=== PATIENT | male | born 2000 | race Two or more races ===

== ENCOUNTER 2022-06-25 20:26 | Emergency (ER) | payer MEDICAID, SELFPAY ==
--- NOTE | ~2022-06-25 | US_ITS ---
EXAMINATION: US SCROTUM CLINICAL INFORMATION: Right testicular pain and swelling. COMPARISON: None TECHNIQUE: A sonogram of the scrotum was performed assessing browne-scale appearance and color Doppler flow. Spectral Doppler analysis of the arterial and venous flow were performed in the testes bilaterally. FINDINGS: RIGHT: Right testicle measures 4.2 x 1.9 x 3.0 cm, volume 13 mL. No focal testicular parenchymal lesions are visualized. Spectral Doppler analysis of the arterial and venous flow is normal in the right testis. Right epididymal head is normal in size. A right appendix epididymis is noted No right hydrocele or varicocele is seen. Right epididymal Doppler flow is normal. LEFT: Left testicle measures 3.7 x 2.0 x 3.0 cm, volume 12 mL. No focal testicular parenchymal lesions are visualized. Spectral Doppler analysis of the arterial and venous flow is normal in the left testis. Left epididymal head is normal in size. No left hydrocele or varicocele is seen. Left epididymal Doppler flow is normal. US/US scrotum doppler IMPRESSION: Negative exam.
--- NOTE | ~2022-06-25 | US_ITS ---
EXAMINATION: US SCROTUM CLINICAL INFORMATION: Right testicular pain and swelling. COMPARISON: None TECHNIQUE: A sonogram of the scrotum was performed assessing browne-scale appearance and color Doppler flow. Spectral Doppler analysis of the arterial and venous flow were performed in the testes bilaterally. FINDINGS: RIGHT: Right testicle measures 4.2 x 1.9 x 3.0 cm, volume 13 mL. No focal testicular parenchymal lesions are visualized. Spectral Doppler analysis of the arterial and venous flow is normal in the right testis. Right epididymal head is normal in size. A right appendix epididymis is noted No right hydrocele or varicocele is seen. Right epididymal Doppler flow is normal. LEFT: Left testicle measures 3.7 x 2.0 x 3.0 cm, volume 12 mL. No focal testicular parenchymal lesions are visualized. Spectral Doppler analysis of the arterial and venous flow is normal in the left testis. Left epididymal head is normal in size. No left hydrocele or varicocele is seen. Left epididymal Doppler flow is normal. US/US scrotum IMPRESSION: Negative exam.
--- NOTE | 2022-06-25 20:41 | ED.MALEGU ---
HPI - Male Genitourinary General Chief complaint: General Medical <MARLENY Daniels - Last Filed: 06/25/22 20:49> Stated complaint: Genital Pain <MARLEYN Daniels - Last Filed: 06/25/22 20:49> Time Seen by Provider: 06/25/22 22:49 <MARLENY Daniels - Last Filed: 06/25/22 20:49> Source: patient <Janeth Phillip NP - Last Filed: 06/25/22 23:37> Mode of arrival: ambulatory <Janeth Phillip NP - Last Filed: 06/25/22 23:37> Limitations: no limitations <Janeth Phillip NP - Last Filed: 06/25/22 23:37> History of Present Illness HPI Narrative: 22-year-old male presents 1 day of testicular pain that has been constant, however this testicular pain has been intermittent over the past week. He does not report any trauma, hematuria, or penile discharge. <Janeth Phillip NP - Last Filed: 06/25/22 23:37> MD Complaint: testicle pain <Janeth Phillip NP - Last Filed: 06/25/22 23:37> Onset (ago): day(s) <Janeth Phillip NP - Last Filed: 06/25/22 23:37> Duration: constant <Janeth Phillip NP - Last Filed: 06/25/22 23:37> Location: right testicle <Janeth Phillip NP - Last Filed: 06/25/22 23:37> Severity: moderate <Janeth Phillip NP - Last Filed: 06/25/22 23:37> Severity scale (1-10): 6 <Janeth Phillip NP - Last Filed: 06/25/22 23:37> Quality: aching <Janeth Phillip NP - Last Filed: 06/25/22 23:37> Relieving factors: none <Janeth Phillip NP - Last Filed: 06/25/22 23:37> Exacerbating factors: palpation and movement <Janeth Phillip NP - Last Filed: 06/25/22 23:37> Associated symptoms: Reports denies other symptoms <Janeth Phillip NP - Last Filed: 06/25/22 23:37> Related Data Sexually active: No <Janeth Phillip NP - Last Filed: 06/25/22 23:37> Home medications: Previous Rx's Medication Instructions Recorded doxycycline monohydrate 100 mg 100 mg PO BID 14 days #28 caps 06/25/22 capsule <MARLENY Daniels - Last Filed: 06/25/22 20:49> Allergies/Adverse reactions: Allergies Allergy/AdvReac Type Severity Reaction Status Date / Time No Known Allergies Allergy Verified 06/25/22 20:47 <MARLENY Daniels - Last Filed: 06/25/22 20:49> Review of Systems Review of Systems: Constitutional: No Fever, No Chills Cardiovascular: No Chest Pain, No SOB Respiratory: No Cough, No Dyspnea Gastrointestinal: No Nausea, No Vomiting, No Diarrhea, No abdominal Pain Genitourinary: Positive testicular pain, No Dysuria, No Hematuria Musculoskeletal: No joint pain, No Myalgias, No Joint Swelling Skin: No Skin lacerations, No rash Neuro: No Weakness, No Numbness, No Paresthesias, No Dizziness, No Headache <Janeth Phillip NP - Last Filed: 06/25/22 23:37> Yes all other systems are reviewed and are negative <Janeth Phillip NP - Last Filed: 06/25/22 23:37> [facility] [place] Past Medical History Attestation statement: The following information was validated with the patient. <Janeth Phillip NP - Last Filed: 06/25/22 23:37> Source: old records reviewed <Janeth Phillip NP - Last Filed: 06/25/22 23:37> Social History Social History: Social History Advance Directives: No Advance Directives Information Provided: Yes <MARLENY Daniels - Last Filed: 06/25/22 20:49> Physical Exam Vital Signs: Vital Signs: Last Vital Signs Temp 97.6 F 06/25/22 20:46 Pulse 82 06/25/22 20:46 Resp 18 06/25/22 20:46 BP 141/88 H 06/25/22 20:46 Pulse Ox 97 06/25/22 20:46 O2 Del Method 06/25/22 20:46 BMI result Body Mass Index 38.5 <MARLENY Daniels - Last Filed: 06/25/22 20:49> Vital Signs: Last Vital Signs Temp 97.6 F 06/25/22 20:46 Pulse 82 06/25/22 20:46 Resp 18 06/25/22 20:46 BP 141/88 H 06/25/22 20:46 Pulse Ox 97 06/25/22 20:46 O2 Del Method 06/25/22 20:46 BMI result Body Mass Index 38.5 <Janeth Phillip NP - Last Filed: 06/25/22 23:37> Appearance: Alert. Oriented X3. No acute distress. Eyes: Pupils equal, round and reactive to light. ENT: Pharynx normal. Neck: Normal inspection. Neck supple. CVS: Normal heart rate and rhythm. Pulses normal. Respiratory: No respiratory distress. Breath sounds normal. Abdomen: Soft and nontender. Genitourinary: Testicular exam within normal limits. Tenderness noted to the right testicle. Cremasteric reflex intact. No indication of fourniers gangrene. No lesions wounds or abrasions. No penile discharge. Skin: Skin warm and dry. Normal skin color. Normal skin turgor. Extremities: Gait well balanced well coordinated. Neuro: No motor deficit. No sensory deficit. Cranial nerves 2-12 intact. <Janeth Phillip NP - Last Filed: 06/25/22 23:37> Course Course Course Narrative: RME-- 22-year-old male with no significant past medical history presenting to the ED complaining of Right testicular pain & swelling since yesterday. Pain is intermittent with mild dysuria. Denies injury/trauma Scrotal US, UA and CTNG ordered in triage <MARLENY Daniels - Last Filed: 06/25/22 20:49> RME-- 22-year-old male with no significant past medical history presenting to the ED complaining of Right testicular pain & swelling since yesterday. Pain is intermittent with mild dysuria. Denies injury/trauma Scrotal US, UA and CTNG ordered in triage 22-year-old male presents for testicular pain and swelling has been constant since yesterday however he has had intermittent testicular pain over the past week. He does not report any recent sexual contact, denies lesions, wounds, trauma, erectile dysfunction, or penile discharge. Scrotal ultrasound was completed while patient was in the emergency department waiting room, with negative results. At this time I feel it would be more beneficial to treat with ceftriaxone and doxycycline for epididymitis verses STI and have patient follow-up with Urology. Patient agrees with this plan. Patient verbalized understanding of signs and symptoms indicating need for emergent intervention. Verbalized understanding of discharge instructions. <Janeth Phillip NP - Last Filed: 06/25/22 23:37> Medical Decision Making Differential Diagnosis Differential Diagnoses: The differential diagnosis associated with the presentation includes <Janeth Phillip NP - Last Filed: 06/25/22 23:37> Hydrocele, varicocele, testicular cancer, STI, epididymal <Janeth Phillip NP - Last Filed: 06/25/22 23:37> Lab Data MDM Lab Attestation statement: I reviewed the patient's lab results. <Janeth Phillip NP - Last Filed: 06/25/22 23:37> Labs: Lab Results 06/25/22 Range/Units 20:57 Urine Color Yellow Urine Appearance Clear Urine pH 6.0 (5.0-9.0) Ur Specific [place] >= 1.030 H (1.005-1.025) Urine Protein Negative (Neg-Trace) mg/dL Urine Glucose (UA) Negative (Negative) mg/dL Urine Ketones Negative (Negative) mg/dL Urine Blood Negative (Negative) Urine Nitrite Negative (Negative) Ur Leukocyte Esterase Negative (Negative) <MARLENY Daniels - Last Filed: 06/25/22 20:49> Lab Results 06/25/22 Range/Units 20:57 Urine Color Yellow Urine Appearance Clear Urine pH 6.0 (5.0-9.0) Ur Specific [place] >= 1.030 H (1.005-1.025) Urine Protein Negative (Neg-Trace) mg/dL Urine Glucose (UA) Negative (Negative) mg/dL Urine Ketones Negative (Negative) mg/dL Urine Blood Negative (Negative) Urine Nitrite Negative (Negative) Ur Leukocyte Esterase Negative (Negative) <Janeth Phillip NP - Last Filed: 06/25/22 23:37> External Record Review External record reviewed: Outpatient record <Janeth Phillip NP - Last Filed: 06/25/22 23:37> Prescription Management I considered prescription management with: Antibiotic <Janeth Phillip NP - Last Filed: 06/25/22 23:37> Discharge Plan Discharge Clinical Impression: Pain in testicle <MARLENY Daniels Last Filed: 06/25/22 20:49> Patient Disposition: Home, Self-Care <MARLENY Daniels Last Filed: 06/25/22 20:49> Instructions: Testicle Pain (ED) <MARLENY Daniels Last Filed: 06/25/22 20:49> Additional Instructions: You were evaluated for testicular pain. Although there is a low likelihood of sexually transmitted infection, we are treating you for epididymitis. Please take doxycycline 100 mg twice a day for the next 14 days. Please follow-up with Dr. Davis, he is a urologist. Please call and request an appointment. Your testicular ultrasound was normal. Thank you for choosing this emergency department for evaluation. Please follow-up with primary care physician as needed. Return to the emergency department for any new, concerning, or worsening symptoms. <MARLENY Daniels - Last Filed: 06/25/22 20:49> Prescriptions: New doxycycline monohydrate 100 mg capsule 100 mg PO BID 14 Days Qty: 28 0RF <MARLENY Daniels - Last Filed: 06/25/22 20:49> Referrals: Tc Davis MD [Physician] - 3 days (Testicular pain) <MARLENY Daniels Last Filed: 06/25/22 20:49> Stand Alone Forms: Work/School Release <MARLENY Daniels - Last Filed: 06/25/22 20:49>
[2022-06-25 20:46] VITALS: BP 141/88; PULSE 82; RESP 18; TEMP 36.4; O2SAT 97; BMI 38.5
[2022-06-25 21:14] LABS: Appearance Urine Clear; Color Urine Yellow; Glucose Urine UA Negative (Negative); Leukocyte Esterase Urine Negative (Negative); Nitrite Urine Negative (Negative); Specific Gravity - Urine >= 1.030 (1.005-1.025); Urine Blood Negative (Negative); Urine Ketones Negative (Negative); Urine Protein Negative (Neg-Trace)
--- OUTSIDE RECORDS SUMMARY | 2022-06-25 23:15 | XMS_ITS | Continuity of Care Document ---
:2000 Author Organization [facility] Address [address] [place] [address]- Care Team Providers Name Role Phone Ari MUJICA, Jerri Ford Primary Care Physician Encounter [facility] Date(s): 09/22/20 - 10/22/[address] [address] Allergies, Adverse Reactions, Alerts Substance Reaction Severity Status NKA Active Immunizations Given and Recorded Vaccine Date Status Refusal Reason influenza virus vaccine, inactivated 03/21/17 Given influenza virus vaccine, inactivated 03/16/16 Given influenza virus vaccine, inactivated 05/12/14 Given influenza virus vaccine, inactivated1 04/17/12 Given influenza virus vaccine, inactivated2 06/23/09 Given influenza virus vaccine, inactivated3 03/31/08 Given influenza virus vaccine, inactivated 05/22/06 Given influenza virus vaccine, inactivated 06/14/04 Given influenza virus vaccine, inactivated 04/29/03 Given influenza virus vaccine, inactivated 03/27/02 Given influenza virus vaccine, inactivated 05/22/01 Given Hepatitis A Pediatric Vaccine 03/16/16 Given Hepatitis A Pediatric Vaccine 08/31/15 Given Human Papillomavirus Vaccine 08/31/15 Given Human Papillomavirus Vaccine 12/22/14 Given Human Papillomavirus Vaccine 07/08/14 Given Meningococcal Conjugate Vaccine 08/31/15 Given Meningococcal Conjugate Vaccine4 04/17/12 Given tetanus/diphtheria/pertussis, acel(Tdap)5 02/17/09 Given Varicella Virus Vaccine6 09/03/07 Given Varicella Virus Vaccine 05/25/99 Given Poliovirus Vaccine, Inactivated 05/27/03 Given Poliovirus Vaccine, Inactivated 08/29/99 Given Poliovirus Vaccine, Inactivated 98 Given Poliovirus Vaccine, Inactivated 98 Given Measles/Mumps/Rubella Virus Vaccine 05/28/02 Given Measles/Mumps/Rubella Virus Vaccine 05/25/99 Given diphtheria/tetanus/pertussis, acel(DTaP) 05/28/02 Given diphtheria/tetanus/pertussis, acel(DTaP) 08/29/99 Given diphtheria/tetanus/pertussis, acel(DTaP) 98 Given diphtheria/tetanus/pertussis, acel(DTaP) 98 Given diphtheria/tetanus/pertussis, acel(DTaP) 98 Given pneumococcal 13-valent vaccine 10/31/00 Given Haemophilus B conjugate (HbOC) vaccine 08/31/99 Given Haemophilus B conjugate (HbOC) vaccine 98 Given Haemophilus B conjugate (HbOC) vaccine 98 Given Haemophilus B conjugate (HbOC) vaccine 98 Given hepatitis B pediatric vaccine 98 Given hepatitis B pediatric vaccine 98 Given hepatitis B pediatric vaccine 98 Given 1Admin Note: VIS 01/09/11 [id number] Note: --VIS 03/18/09 [id number] Note: VIS 01/08/2008 [id number] Note: MENECTRA VIS 07/14/07 [id number] Note: VIS 12/26/05 [id number] Note: ADM BY RN Medications albuterol CFC free 90 mcg/inh inhalation aerosol 2, puffs, Inhalation, Every 4 hours, PRN, use with spacer, # 1 each, Refills 1, Tot. Refills 1, Maintenance, 07/22/19 15:40:00 EST, Route to Pharmacy Electronically, [id number], [facility] #[id number], 170, cm, 07/22/19... Start Date: 07/22/19 Status: OrderedFlonase 50 mcg/inh nasal spray 2 sprays, Nares, Both, Daily in AM, # 16 Gm, 0 Refills, Maintenance, 08/11/20 16:12:00 EST, [place], [facility] #[id number], Partial fill upon patient request if the prescription is for a schedule II opioid drug., 2 sprays Nares, Both Daily in AM,... Start Date: 08/11/20 Status: OrderedMiraLax oral powder for reconstitution = 17 Gm, By Mouth, Daily, dissolve in water before taking dissolve in water or juice, can use otc, #527 Gm, 5 Refills, Maintenance, 08/10/20 15:27:00 EST, [place], [facility] #[id number], Partial fill upon patient request if the prescription... Start Date: 08/10/20 Stop Date: 08/20/20 Status: OrderedVitamin D 07106 iu oral capsule 50,000 International_Units, 1, capsule, By Mouth, Every week, # 8 capsule, Refills 0, Tot. Refills 0, Maintenance, 08/04/19 11:32:00 EST, Route to Pharmacy Electronically, [facility] #[id number], 170, cm, 08/03/19 11:35:00 EST, Height Start Date: 08/04/19 Status: Ordered Problem List Condition Effective Dates Status Health Status Informant AST/SGOT level raised(Confirmed) Active Asthma(Confirmed) Active Obesity(Confirmed) Active Vitamin D deficiency(Confirmed) Active Social History Social History Type Response Smoking Status Never smoker; Tobacco user i n household: No entered on: 03/16/16 Sex
--- OUTSIDE RECORDS SUMMARY | 2022-06-25 23:15 | XMS_ITS | Continuity of Care Document ---
:2000 Author Organization [facility] Address [address] [place] [address]- Care Team Providers Name Role Phone Ari MUJICA, Jerri Ford Primary Care Physician [phone] En[place] [facility] [place] 06/06/20 - 07/06/20 [facility] [address] [place], [place] [address] Attending Physician: Larry Ruiz Admitting Physician: AdmLarry morales Referring Physician: AdmtrLarry Allergies, Adverse Reactions, Alerts Substance Reaction Severity [...] vaccine 98 Given 1Admin Note: VIS 01/09/11 [id number] Note: --VIS 03/18/09 [id number] Note: VIS 01/08/2008 [id number] Note: MENECTRA VIS 07/14/07 [id number] Note: VIS 12/26/05 [id number] Note: ADM BY RN Medications albuterol CFC free 90 mcg/inh inhalation aerosol 2, puffs, Inhalation, Every 4 hours, PRN, use with spacer, # 1 each, Refills 1, Tot. Refills 1, Maintenance, 07/22/19 15:40:00 EST, Route to Pharmacy Electronically, [id number], [facility] #[id number], 170, cm, 07/22/19... Start Date: 07/22/19 Status: OrderedFlonase 0.05 mg/inh nasal spray 1 sprays, Nares, Both, 2 times a day, # 1 each, 1 Refills, Maintenance, 09/08/15 14:11:46, 1 sprays Nares, Both 2 times a day,x30 days Start Date: 09/08/15 Stop Date: 11/07/15 Status: OrderedFlonase 50 mcg/inh nasal spray 1 sprays, Nares, Both, 2 times a day, # 16 Gm, 0 Refills, Maintenance, 06/06/20 16:33:00 EST, [place],[facility] #[id number], Partial fill upon patient request if the prescription is for a scheduleII opioid drug., 1 sprays Nares, Both 2 times a d... Start Date: 06/06/20 Status: OrderedVitamin D 73241 iu oral capsule 50,000 International_Units, 1, capsule, By Mouth, Every week, # 8 capsule, Refills 0, Tot. Refills 0, Maintenance, 08/04/19 11:32:00 EST, Route to Pharmacy Electronically, [facility] #[id number], 170, cm, 08/03/19 11:35:00 EST, Height Start Date: 08/04/19 Status: Ordered Problem List Condition Effective Dates Status Health Status Informant AST/SGOT level raised(Confirmed) Active Asthma(Confirmed) Active Obesity(Confirmed) Active Vitamin D deficiency(Confirmed) Active Social History Social History Type Response Smoking Status Never smoker; Tobacco user i n household: No entered on: 03/16/16 Sex
--- OUTSIDE RECORDS SUMMARY | 2022-06-25 23:15 | XMS_ITS | Continuity of Care Document ---
:2000 Author Organization [facility] Address [address] [place] [address]- Care Team Providers Name Role Phone Ari MUJICA, Jerri Ford Primary Care Physician [phone] Encounter [facility] [id number] Date(s): 09/23/20 - 10/23/[address] [address] Attending Physician: Larry Ruiz Admitting Physician: Admtr, Larry Referring Physician: Admtr, Ar8 Allergies, Adverse Reactions, Alerts Substance Reaction Severity [...] vaccine 98 Given 1Admin Note: VIS 01/09/11 [id number] Note: --VIS 03/18/09 [id number] Note: VIS 01/08/2008 [id number] Note: MENECTRA VIS 07/14/07 [id number] Note: VIS 12/26/05 [id number] Note: ADM BY RN Medications albuterol CFC free 90 mcg/inh inhalation aerosol 2, puffs, Inhalation, Every 4 hours, PRN, use with spacer, # 1 each, Refills 1, Tot. Refills 1, Maintenance, 07/22/19 15:40:00 EST, Route to Pharmacy Electronically, [id number], [facility] #[id number], 170, cm, 07/22/19... Start Date: 07/22/19 Status: OrderedFlonase 50 mcg/inh nasal spray 2 sprays, Nares, Both, Daily in AM, # 16 Gm, 0 Refills, Maintenance, 08/11/20 16:12:00 EST, [place], [facility] #[id number], Partial fill upon patient request if the prescription is for a schedule II opioid drug., 2 sprays Nares, Both Daily in AM,... Start Date: 08/11/20 Status: OrderedMiraLax oral powder for reconstitution = 17 Gm, By Mouth, Daily, dissolve in water before taking dissolve in water or juice, can use otc, #527 Gm, 5 Refills, Maintenance, 08/10/20 15:27:00 EST, [place], [facility] #[id number], Partial fill upon patient request if the prescription... Start Date: 08/10/20 Stop Date: 08/20/20 Status: OrderedVitamin D 06919 iu oral capsule 50,000 International_Units, 1, capsule, By Mouth, Every week, # 8 capsule, Refills 0, Tot. Refills 0, Maintenance, 08/04/19 11:32:00 EST, Route to Pharmacy Electronically, [facility] #[id number], 170, cm, 08/03/19 11:35:00 EST, Height Start Date: 08/04/19 Status: Ordered Problem List Condition Effective Dates Status Health Status Informant AST/SGOT level raised(Confirmed) Active Asthma(Confirmed) Active Obesity(Confirmed) Active Vitamin D deficiency(Confirmed) Active Social History Social History Type Response Smoking Status Never smoker; Tobacco user i n household: No entered on: 03/16/16 Sex
--- OUTSIDE RECORDS SUMMARY | 2022-06-25 23:16 | XMS_ITS | Continuity of Care Document ---
:2000 Author Organization [facility] Address [address] [place] [address]- Care Team Providers Name Role Phone Ari MUJICA, Jerri Ford Primary Care Physician Encounter [facility] [id number] Date(s): 08/11/20 - 08/18/20 [facility] [address], [place] [address] Encounter Diagnosis Eustachian tube dysfunction (Discharge Diagnosis) - 08/11/20 Attending Physician: Kevin Rainey MD Referring Physician: Jerri Chapman MD Allergies, Adverse Reactions, Alerts Substance Reaction Severity [...] vaccine 98 Given 1Admin Note: VIS 01/09/11 [id number] Note: --VIS 03/18/09 [id number] Note: VIS 01/08/2008 [id number] Note: MENECTRA VIS 07/14/07 [id number] Note: VIS 12/26/05 [id number] Note: ADM BY RN Medications albuterol CFC free 90 mcg/inh inhalation aerosol 2, puffs, Inhalation, Every 4 hours, PRN, use with spacer, # 1 each, Refills 1, Tot. Refills 1, Maintenance, 07/22/19 15:40:00 EST, Route to Pharmacy Electronically, [id number], [facility] #[id number], 170, cm, 07/22/19... Start Date: 07/22/19 Status: OrderedFlonase 50 mcg/inh nasal spray 2 sprays, Nares, Both, Daily in AM, # 16 Gm, 0 Refills, Maintenance, 08/11/20 16:12:00 EST, [place], [facility] #[id number], Partial fill upon patient request if the prescription is for a schedule II opioid drug., 2 sprays Nares, Both Daily in AM,... Start Date: 08/11/20 Status: OrderedMetamucil 3.4 gm/5.2 gm oral powder for reconstitution = 3.4 Gm, By Mouth, 3 times a day, PRN as needed for constipation, for 30 days, dissolve in 8 oz of fluid, patient can take [id number] Metamucil powder or any fiber for constipation, # 1,042 Gm, 1 Refills, Acute 10/09/20 15:27:00 EDT, 08/10/20 1... Start Date: 08/10/20 Stop Date: 10/09/20 Status: OrderedMiraLax oral powder for reconstitution = 17 Gm, By Mouth, Daily, dissolve in water before taking dissolve in water or juice, can use otc, #527 Gm, 5 Refills, Maintenance, 08/10/20 15:27:00 EST, [place], [facility] #[id number], Partial fill upon patient request if the prescription... Start Date: 08/10/20 Stop Date: 08/20/20 Status: OrderedVitamin D 50596 iu oral capsule 50,000 International_Units, 1, capsule, By Mouth, Every week, # 8 capsule, Refills 0, Tot. Refills 0, Maintenance, 08/04/19 11:32:00 EST, Route to Pharmacy Electronically, [facility] #[id number], 170, cm, 08/03/19 11:35:00 EST, Height Start Date: 08/04/19 Status: Ordered Problem List Condition Effective Dates Status Health Status Informant AST/SGOT level raised(Confirmed) Active Asthma(Confirmed) Active Obesity(Confirmed) Active Vitamin D deficiency(Confirmed) Active Diagnosis Diagnosis Type Effective Dates Health Clinical Infor mant Status Service Eustachian tube Discharge 08/11/20 dysfunction Diagnosis Vital Signs Most recent to oldest [Reference Range]: 1 Height 170.00 cm (08/11/20 3:56 PM) Weight 102.6 kg (08/11/20 3:56 PM) Oxygen Saturation [94-100 %] 100 % (08/11/20 3:56 PM) Pulse Rate [55-90 bpm] 86 bpm (08/11/20 3:56 PM) Body Mass Index [18.5-24.99] 35.5 *>HHI* (08/11/20 3:56 PM) Blood Pressure [90-138/55-84 mm Hg] 137/82 mm Hg (08/11/20 3:56 PM) Respiratory Rate [16-30 br/min] 17 br/min (08/11/20 3:56 PM) Temperature [96.8-100.4 DegF] 98.2 DegF (08/11/20 3:56 PM) Mode of Delivery (Oxygen) Room air (08/11/20 3:56 PM) Blood pressure sites Arm, right (08/11/20 3:56 PM) Temperature Route Temporal (08/11/20 3:56 PM) Dry Weight 102.6 kg (08/11/20 3:56 PM) Weight Obtained Via Standing scale (08/11/20 3:56 PM) Dry Weight Obtained Via Standing scale (08/11/20 3:56 PM) Social History Social History Type Response Smoking Status Never smoker; Tobacco user i n household: No entered on: 03/16/16 Sex
--- OUTSIDE RECORDS SUMMARY | 2022-06-25 23:16 | XMS_ITS | Continuity of Care Document ---
:2000 Author Organization [facility] Address [address] [place] [address]- Care Team Providers Name Role Phone Ari MUJICA, Jerri Ford Primary Care Physician [phone] Encounter [facility] [place] Date(s): 08/11/20 - 09/10/20 [facility] [address] [place], [place] [address] Attending Physician: Larry Ruiz Admitting Physician: AdmLarry [...] vaccine 98 Given 1Admin Note: VIS 01/09/11 [id number] Note: --VIS 03/18/09 [id number] Note: VIS 01/08/2008 [id number] Note: MENECTRA VIS 07/14/07 [id number] Note: VIS 12/26/05 [id number] Note: ADM BY RN Medications albuterol CFC free 90 mcg/inh inhalation aerosol 2, puffs, Inhalation, Every 4 hours, PRN, use with spacer, # 1 each, Refills 1, Tot. Refills 1, Maintenance, 07/22/19 15:40:00 EST, Route to Pharmacy Electronically, [id number], [facility] #[id number], 170, cm, 07/22/19... Start Date: 07/22/19 Status: OrderedFlonase 50 mcg/inh nasal spray 2 sprays, Nares, Both, Daily in AM, # 16 Gm, 0 Refills, Maintenance, 08/11/20 16:12:00 EST, [place], [facility] #[id number], Partial fill upon patient request if the prescription is for a schedule II opioid drug., 2 sprays Nares, Both Daily in AM,... Start Date: 08/11/20 Status: OrderedMetamucil 3.4 gm/5.2 gm oral powder for reconstitution = 3.4 Gm, By Mouth, 3 times a day, PRN as needed for constipation, for 30 days, dissolve in 8 oz of fluid, patient can take [id number] Metamucil powder or any fiber for constipation, # 1,042 Gm, 1 Refills, Acute 10/09/20 15:27:00 EDT, 08/10/20 1... Start Date: 08/10/20 Stop Date: 10/09/20 Status: OrderedMiraLax oral powder for reconstitution = 17 Gm, By Mouth, Daily, dissolve in water before taking dissolve in water or juice, can use otc, #527 Gm, 5 Refills, Maintenance, 08/10/20 15:27:00 EST, [place], [facility] #[id number], Partial fill upon patient request if the prescription... Start Date: 08/10/20 Stop Date: 08/20/20 Status: OrderedVitamin D 48999 iu oral capsule 50,000 International_Units, 1, capsule, By Mouth, Every week, # 8 capsule, Refills 0, Tot. Refills 0, Maintenance, 08/04/19 11:32:00 EST, Route to Pharmacy Electronically, [facility] #[id number], 170, cm, 08/03/19 11:35:00 EST, Height Start Date: 08/04/19 Status: Ordered Problem List Condition Effective Dates Status Health Status Informant AST/SGOT level raised(Confirmed) Active Asthma(Confirmed) Active Obesity(Confirmed) Active Vitamin D deficiency(Confirmed) Active Social History Social History Type Response Smoking Status Never smoker; Tobacco user i n household: No entered on: 03/16/16 Sex
--- OUTSIDE RECORDS SUMMARY | 2022-06-25 23:16 | XMS_ITS | Continuity of Care Document ---
:2000 Author Organization [facility] Address [address] [place] [address]- Care Team Providers Name Role Phone Ari MUJICA, Jerri Ford Primary Care Physician Encounter [facility] Date(s): 08/03/19 - 08/03/[address] [address]- [facility] Attending Physician: Coni Webster NP, I Allergies, Adverse Reactions, Alerts Substance Reaction Severity [...] vaccine 98 Given 1Admin Note: VIS 01/09/11 [id number] Note: --VIS 03/18/09 [id number] Note: VIS 01/08/2008 [id number] Note: MENECTRA VIS 07/14/07 [id number] Note: VIS 12/26/05 [id number] Note: ADM BY RN Medications albuterol CFC free 90 mcg/inh inhalation aerosol 2, puffs, Inhalation, Every 4 hours, PRN, use with spacer, # 1 each, Refills 1, Tot. Refills 1, Maintenance, 07/22/19 15:40:00 EST, Route to Pharmacy Electronically, [id number], [facility] #[id number], 170, cm, 07/22/19... Start Date: 07/22/19 Status: OrderedFlonase 0.05 mg/inh nasal spray 1 sprays, Nares, Both, 2 times a day, # 1 each, 1 Refills, Maintenance, 09/08/15 14:11:46, 1 sprays Nares, Both 2 times a day,x30 days Start Date: 09/08/15 Stop Date: 11/07/15 Status: Ordered Problem List Condition Effective Dates Status Health Status Informant AST/SGOT level raised(Confirmed) Active Asthma(Confirmed) Active Obesity(Confirmed) Active Vitamin D deficiency(Confirmed) Active Social History Social History Type Response Smoking Status Never smoker; Tobacco user i n household: No entered on: 03/16/16 Sex
--- OUTSIDE RECORDS SUMMARY | 2022-06-25 23:16 | XMS_ITS | Continuity of Care Document ---
:2000 Author Organization [facility] Address [address] [place] [address]- Care Team Providers Name Role Phone Ari MUJICA, Jerri Ford Primary Care Physician [phone] [place] [facility] [place] 06[place]13/20 [facility] [address], [place] [address] Attending Physician: Kevin Rainey MD Allergies, Adverse Reactions, Alerts Substance Reaction [...] vaccine 98 Given 1Admin Note: VIS 01/09/11 [id number] Note: --VIS 03/18/09 [id number] Note: VIS 01/08/2008 [id number] Note: MENECTRA VIS 07/14/07 [id number] Note: VIS 12/26/05 [id number] Note: ADM BY RN Medications albuterol CFC free 90 mcg/inh inhalation aerosol 2, puffs, Inhalation, Every 4 hours, PRN, use with spacer, # 1 each, Refills 1, Tot. Refills 1, Maintenance, 07/22/19 15:40:00 EST, Route to Pharmacy Electronically, [id number], [facility] #[id number], 170, cm, 07/22/19... Start Date: 07/22/19 Status: [...] Gm, 0 Refills, Maintenance, 06/06/20 16:33:00 EST, [place],[email or web address] #[id number], Partial fill upon patient request if the prescription is for a scheduleII opioid drug., 1 sprays Nares, Both 2 times a d... Start Date: 06/06/20 Status: OrderedVitamin D 72350 iu oral capsule 50,000 International_Units, 1, capsule, By Mouth, Every week, # 8 capsule, Refills 0, Tot. Refills 0, Maintenance, 08/04/19 11:32:00 EST, Route to Pharmacy Electronically, [email or web address] #[id number], 170, cm, 08/03/19 11:35:00 EST, Height Start Date: 08/04/19 Status: Ordered Problem List Condition Effective Dates Status Health Status Informant AST/SGOT level raised(Confirmed) Active Asthma(Confirmed) Active Obesity(Confirmed) Active Vitamin D deficiency(Confirmed) Active Vital Signs Most recent to oldest [Reference Range]: 1 Height 170.00 cm (06/06/20 4:14 PM) Oxygen Saturation [94-100 %] 100 % (06/06/20 4:14 PM) Pulse Rate [55-90 bpm] 104 bpm *H* (06/06/20 4:14 PM) Blood Pressure [90-138/55-84 mm Hg] 139/78 mm Hg *H* (06/06/20 4:14 PM) Respiratory Rate [16-30 br/min] 20 br/min (06/06/20 4:14 PM) Temperature [96.8-100.4 DegF] 97.7 DegF (06/06/20 4:14 PM) Mode of Delivery (Oxygen) Room air (06/06/20 4:14 PM) Blood pressure sites Arm, left (06/06/20 4:14 PM) Temperature Route Temporal (06/06/20 4:14 PM) Social History Social History Type Response Smoking Status Never smoker; Tobacco user i n household: No entered on: 03/16/16 Sex
--- OUTSIDE RECORDS SUMMARY | 2022-06-25 23:16 | XMS_ITS | Continuity of Care Document ---
:[address] [facility] Address [address] [place] [address]- Care Team Providers Name Role Phone Ari MUJICA, Jerri Ford Primary Care Physician Encounter [facility] Date(s): 09/21/20 - 10/21/[address] [address] Allergies, Adverse Reactions, Alerts Substance Reaction Severity [...] vaccine 98 Given 1Admin Note: VIS 01/09/11 [id number] Note: --VIS 03/18/09 [id number] Note: VIS 01/08/2008 [id number] Note: MENECTRA VIS 07/14/07 [id number] Note: VIS 12/26/05 [id number] Note: ADM BY RN Medications albuterol CFC free 90 mcg/inh inhalation aerosol 2, puffs, Inhalation, Every 4 hours, PRN, use with spacer, # 1 each, Refills 1, Tot. Refills 1, Maintenance, 07/22/19 15:40:00 EST, Route to Pharmacy Electronically, [id number], [facility] #[id number], 170, cm, 07/22/19... Start Date: 07/22/19 Status: OrderedFlonase 50 mcg/inh nasal spray 2 sprays, Nares, Both, Daily in AM, # 16 Gm, 0 Refills, Maintenance, 08/11/20 16:12:00 EST, [place], [email or web address] #[id number], Partial fill upon patient request if the prescription is for a schedule II opioid drug., 2 sprays Nares, Both Daily in AM,... Start Date: 08/11/20 Status: OrderedMiraLax oral powder for reconstitution = 17 Gm, By Mouth, Daily, dissolve in water before taking dissolve in water or juice, can use otc, #527 Gm, 5 Refills, Maintenance, 08/10/20 15:27:00 EST, [place], [email or web address] #[id number], Partial fill upon patient request if the prescription... Start Date: 08/10/20 Stop Date: 08/20/20 Status: OrderedVitamin D 61093 iu oral capsule 50,000 International_Units, 1, capsule, By Mouth, Every week, # 8 capsule, Refills 0, Tot. Refills 0, Maintenance, 08/04/19 11:32:00 EST, Route to Pharmacy Electronically, [email or web address] #[id number], 170, cm, 08/03/19 11:35:00 EST, Height Start Date: 08/04/19 Status: Ordered Problem List Condition Effective Dates Status Health Status Informant AST/SGOT level raised(Confirmed) Active Asthma(Confirmed) Active Obesity(Confirmed) Active Vitamin D deficiency(Confirmed) Active Social History Social History Type Response Smoking Status Never smoker; Tobacco user i n household: No entered on: 03/16/16 Sex
[2022-06-25] MEDS: cefTRIAXone sodium 500 MG, Lidocaine HCl 1 % MPF 1 ML IM (23:39)
[2022-06-25] MEDS: Doxycycline Monohydrate 100 MG CAPSULE PO (23:41)
[2022-06-26 03:02] LABS: CT PCR NOT DETECTED (Not Detect.); NG PCR NOT DETECTED (Not Detect.)
== END 2022-06-25 23:48 | disposition home or self-care (01) ==
PROVIDERS: Physician Assistant; Emergency Provider Internal Medicine
DX: N50.811 Right testicular pain (principal)
CPT/HCPCS: 0353U; 76870; 81003; 93975; 96372; 99282; 99284; J0696

== ENCOUNTER 2022-11-13 11:10 | Emergency (ER) | payer OTHER, SELFPAY ==
--- NOTE | ~2022-11-13 | US_ITS ---
EXAMINATION: US SCROTUM CLINICAL INFORMATION: Pain. COMPARISON: None available. TECHNIQUE: A sonogram of the scrotum was performed assessing browne-scale appearance and color Doppler flow. Spectral Doppler analysis of the arterial and venous flow were performed in the testes bilaterally. FINDINGS: RIGHT: Right testicle measures 4 x 2 x 2.8 cm, volume 12 mL. No focal testicular parenchymal lesions are visualized. There is a right appendix testis. Spectral Doppler analysis of the arterial and venous flow is normal in the right testis. Right epididymal head is normal in size. No right hydrocele or varicocele is seen. Right epididymal Doppler flow is normal. LEFT: Left testicle measures 3.2 x 2 x 3 cm, volume 9 mL. No focal testicular parenchymal lesions are visualized. Spectral Doppler analysis of the arterial and venous flow is normal in the left testis. Left epididymal head is normal in size. No left hydrocele or varicocele is seen. Left epididymal Doppler flow is normal. US/US scrotum IMPRESSION: Unremarkable exam.
--- NOTE | ~2022-11-13 | US_ITS ---
EXAMINATION: US SCROTUM CLINICAL INFORMATION: Pain. COMPARISON: None available. TECHNIQUE: A sonogram of the scrotum was performed assessing browne-scale appearance and color Doppler flow. Spectral Doppler analysis of the arterial and venous flow were performed in the testes bilaterally. FINDINGS: RIGHT: Right testicle measures 4 x 2 x 2.8 cm, volume 12 mL. No focal testicular parenchymal lesions are visualized. There is a right appendix testis. Spectral Doppler analysis of the arterial and venous flow is normal in the right testis. Right epididymal head is normal in size. No right hydrocele or varicocele is seen. Right epididymal Doppler flow is normal. LEFT: Left testicle measures 3.2 x 2 x 3 cm, volume 9 mL. No focal testicular parenchymal lesions are visualized. Spectral Doppler analysis of the arterial and venous flow is normal in the left testis. Left epididymal head is normal in size. No left hydrocele or varicocele is seen. Left epididymal Doppler flow is normal. US/US scrotum doppler IMPRESSION: Unremarkable exam.
[2022-11-13 11:12] VITALS: BP 152/100; PULSE 92; RESP 16; TEMP 36.1; O2SAT 98; BMI 36.0
--- NOTE | 2022-11-13 11:12 | ED.MALEGU ---
HPI - Male Genitourinary General Chief complaint: Urogenital-Male Stated complaint: Testicle pain Time Seen by Provider: 11/13/22 13:04 History of Present Illness HPI Narrative: Patient complains of right testicle pain starting early this morning, it started gradually and it is moderate now, he denies any swelling he denies any injury, he denies any recent sexual activity, he denies any dysuria there is no discharge she denies any sores or lesions Related Data Previous Rx's Medication Instructions Recorded doxycycline monohydrate 100 mg 100 mg PO BID 14 days #28 caps 06/25/22 capsule ibuprofen 600 mg tablet 600 mg PO Q6H PRN pain #20 tabs 11/13/22 Allergies Allergy/AdvReac Type Severity Reaction Status Date / Time No Known Allergies Allergy Verified 06/25/22 20:47 [facility] Past Medical History Source: nursing notes reviewed Social History Social History Advance Directives: No Advance Directives Information Provided: Yes Physical Exam Vital Signs: Vital Signs: Last Vital Signs Temp 97 F 11/13/22 11:12 Pulse 92 11/13/22 11:12 Resp 16 11/13/22 11:12 BP 152/100 H 11/13/22 11:12 Pulse Ox 98 11/13/22 11:12 O2 Del Method Room Air 11/13/22 11:12 BMI result Body Mass Index 36.0 General appearance is no distress Neck is supple Respiratory no distress Abdomen soft nontender Genital exam is normal in appearance there are no lesions or sores no redness, there is no discharge, there is no testicular mass palpated no obvious testicular swelling Palpation for hernia in the will area was negative no hernia felt no mass felt Skin no rashes Extremities full range of motion x4 Course Course Course Narrative: RME - 22 y/o male presents to the ER for evaluation of intermittent right testicular pain that started at 4am today. Described as a dull ache, ranging from 3 to 6 out of 10. No urinary symptoms. Not sexually active, last sexual encounter 1 year ago. Also reports pain is radiating up into the right lower abd. Appears comfortable in triage. Plan: start with scrotal U/S and UA, CT/NG. if negative may need imaging to r/o kidney stone. Testing for STD was negative for GC or chlamydia, urinalysis did not show any sign of infection Ultrasound of scrotum did not show any significant abnormality no torsion no epididymitis no mass My exam for hernia was negative unknown was seen on ultrasound Patient who at this time has no identified serious cause of testicular pain is referred to urologist and will come back if worse Medical Decision Making Lab Data Labs: Lab Results 11/13/22 11/13/22 Range/Units 11:27 11:27 Urine Color Yellow Urine Appearance Clear Urine pH 5.5 (5.0-9.0) Ur Specific [place] >= 1.030 H (1.005-1.025) Urine Protein Negative (Neg-Trace) mg/dL Urine Glucose (UA) Negative (Negative) mg/dL Urine Ketones Negative (Negative) mg/dL Urine Blood Negative (Negative) Urine Nitrite Negative (Negative) Ur Leukocyte Esterase Negative (Negative) Chlam trachomat DNA PCR NOT DETECTED (Not Detect.) N.gonorrhoeae DNA (PCR) NOT DETECTED (Not Detect.) Discharge Plan Discharge Clinical Impression: Pain in testicle Patient Disposition: Home, Self-Care Additional Instructions: ultrasound did not show any abnormality, no worrisome finding in the testicles STD testing was negative, urinalysis was normal, no sign of infection On exam the exam was normal there were no masses or hernias Use Motrin if needed But if you develop severe , especially sudden onset testicular pain you should return to the ER any time as we would need to ultrasound and again If mild episodes continue follow with your doctor and urologist Prescriptions: New ibuprofen 600 mg tablet 600 mg PO Q6H PRN (Reason: pain) Qty: 20 0RF No Action doxycycline monohydrate 100 mg capsule 100 mg PO BID 14 Days Qty: 28 0RF Referrals: Tc Davis MD [Physician] - ( intermittent testicular pain) Interventions: ED Discharge Assessment Last Done: 11/13/22 14:59 Discharge Date/Time: 11/13/22 14:59
[2022-11-13 11:39] LABS: Appearance Urine Clear; Color Urine Yellow; Glucose Urine UA Negative (Negative); Leukocyte Esterase Urine Negative (Negative); Nitrite Urine Negative (Negative); PH 5.5 (5.0-9.0); Specific Gravity - Urine >= 1.030 (1.005-1.025); Urine Blood Negative (Negative); Urine Ketones Negative (Negative); Urine Protein Negative (Neg-Trace)
[2022-11-13 13:17] LABS: CT PCR NOT DETECTED (Not Detect.); NG PCR NOT DETECTED (Not Detect.)
== END 2022-11-13 14:59 | disposition home or self-care (01) ==
PROVIDERS: Physician Assistant; Emergency Provider Emergency Medicine
DX: N50.811 Right testicular pain (principal)
CPT/HCPCS: 0353U; 76870; 81003; 93975; 99282; 99284